=== PATIENT | female | born 1990 | race American Indian/Alaskan Native ===

== ENCOUNTER 2017-01-07 03:38 | Emergency (ER) | payer MEDICAID ==
[2017-01-07 03:49] VITALS: BP 114/72
--- NOTE | 2017-01-07 09:03 | Emergency Department Report ---
ED General Adult HPI - General Chief complaint: Rectal Pain Stated complaint: POST DELIVERY HEMORRHOID/PAIN Time Seen by Provider: 01/07/17 08:26 Source: patient Mode of arrival: Ambulatory Limitations: No Limitations - History of Present Illness Initial comments: This is a 26-year-old female nontoxic, well nourished in appearance, no acute signs of distress presents to the ED complaining of hemorrhoids. 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 Patient denies any rectal bleeding, fever, chills, constipation, diarrhea, abdominal pain, nausea, vomiting, chest pain shortness of breath. Patient denies any allergies. Past medical history includes asthma. MD Complaint: external hemorrhoids -: Gradual, days(s) (4) Radiation: non-radiation Severity scale (0 -10): 6 Quality: aching Consistency: constant Improves with: none Worsens with: none Associated Symptoms: denies other symptoms. denies: confusion, chest pain, cough, diaphoresis, fever/chills, headaches, loss of appetite, malaise, nausea/ vomiting, rash, seizure, shortness of breath, syncope, weakness Treatments Prior to Arrival: none - Related Data Previous Rx's Medication Instructions Recorded Last Taken Type ALBUTEROL Inhaler [ProAir HFA 2 puff IH QID PRN #1 inhalation 12/02/15 Unknown Rx Inhaler] predniSONE [Deltasone] 20 mg PO QDAY #5 tab 12/02/15 Unknown Rx HYDROcodone/APAP 5-325 [[place] 2 each PO Q6H PRN #30 tablet 01/22/16 Unknown Rx 5-325 mg TAB] Ibuprofen [Motrin 600 MG tab] 600 mg PO Q6H PRN #30 tablet 01/22/16 Unknown Rx Vit-Fe Fumar-FA [ 1 each PO QDAY #30 tablet 01/22/16 Unknown Rx Vitamin] Ferrous Sulfate [Feosol 325 MG tab] 325 mg PO BID #60 tablet 01/02/17 Unknown Rx Ibuprofen [Motrin 600 MG tab] 600 mg PO Q6HR PRN #30 tablet 01/02/17 Unknown Rx Dibucaine 1% [Nupercainal] 1 applicatio [place] TID #1 tube 01/07/17 Unknown Rx Hydrocortisone 1% [Hydrocortisone 1 applicatio [place] BID #1 tube 01/07/17 Unknown Rx 1% CREAM] Allergies Allergy/AdvReac Type Severity Reaction Status Date / Time No Known Allergies Allergy Unverified 04/16/15 20:40 ED Review of Systems ROS: Stated complaint: POST DELIVERY HEMORRHOID/PAIN Other details as noted in HPI Constitutional: denies: chills, fever Eyes: denies: eye pain, eye discharge, vision change ENT: denies: ear pain, throat pain Respiratory: denies: cough, shortness of breath, wheezing Cardiovascular: denies: chest pain, palpitations Endocrine: no symptoms reported Gastrointestinal: denies: abdominal pain, nausea, diarrhea Genitourinary: denies: urgency, dysuria, discharge Musculoskeletal: denies: back pain, joint swelling, arthralgia Skin: denies: rash, lesions Neurological: denies: headache, weakness, paresthesias Psychiatric: denies: anxiety, depression Hematological/Lymphatic: denies: easy bleeding, easy bruising ED Past Medical Hx - Past Medical History Previous Medical History?: Yes Hx Hypertension: No Hx Congestive Heart Failure: No Hx Diabetes: No Hx Deep Vein Thrombosis: No Hx Renal Disease: No Hx Sickle Cell Disease: No Hx Seizures: No Hx Asthma: Yes (mild, albuterol PRN) Hx COPD: No Hx HIV: No - Surgical History Past Surgical History?: No - Social History Smoking Status: Never Smoker Substance Use Type: None - Medications Home Medications: Home Medications Medication Instructions Recorded Confirmed Last Taken Type ALBUTEROL Inhaler [ProAir HFA 2 puff IH QID PRN #1 inhalation 12/02/15 01/01/17 Unknown Rx Inhaler] predniSONE [Deltasone] 20 mg PO QDAY #5 tab 12/02/15 01/01/17 Unknown Rx HYDROcodone/APAP 5-325 [[place] 2 each PO Q6H PRN #30 tablet 01/22/16 01/01/17 Unknown Rx 5-325 mg TAB] Ibuprofen [Motrin 600 MG tab] 600 mg PO Q6H PRN #30 tablet 01/22/16 01/01/17 Unknown Rx Vit-Fe Fumar-FA [ 1 each PO QDAY #30 tablet 01/22/16 01/01/17 Unknown Rx Vitamin] Ferrous Sulfate [Feosol 325 MG tab] 325 mg PO BID #60 tablet 01/02/17 Unknown Rx Ibuprofen [Motrin 600 MG tab] 600 mg PO Q6HR PRN #30 tablet 01/02/17 Unknown Rx Dibucaine 1% [Nupercainal] 1 applicatio [place] TID #1 tube 01/07/17 Unknown Rx Hydrocortisone 1% [Hydrocortisone 1 applicatio [place] BID #1 tube 01/07/17 Unknown Rx 1% CREAM] ED Physical Exam - General Limitations: No Limitations General appearance: alert, in no apparent distress - Head Head exam: Present: atraumatic, normocephalic, normal inspection - Eye Eye exam: Present: normal appearance, PERRL, EOMI. Absent: scleral icterus, conjunctival injection, nystagmus, periorbital swelling, periorbital tenderness Pupils: Present: normal accommodation - ENT ENT exam: Present: normal exam, normal orophraynx, mucous membranes moist, TM's normal bilaterally, normal external ear exam - Neck Neck exam: Present: normal inspection, full ROM. Absent: tenderness, meningismus, lymphadenopathy, thyromegaly - Respiratory Respiratory exam: Present: normal lung sounds bilaterally. Absent: respiratory distress, wheezes, rales, rhonchi, stridor, chest wall tenderness, accessory muscle use, decreased breath sounds, prolonged expiratory - Cardiovascular Cardiovascular Exam: Present: regular rate, normal rhythm. Absent: systolic murmur, diastolic murmur, rubs, gallop - GI/Abdominal GI/Abdominal exam: Present: soft, normal bowel sounds. Absent: distended, tenderness, guarding, rebound, rigid, diminished bowel sounds, organomegaly - Rectal Rectal exam: Present: normal inspection, normal rectal tone, hemorrhoids ( external and reducible. No signs of bleeding or thrombosed.), other (bobbin doffer Laura PRADO present during exam). Absent: decreased rectal tone, heme (-) stool , black stool, bloody stool, fecal impaction, mass, tenderness - Extremities Exam Extremities exam: Present: normal inspection, full ROM, normal capillary refill. Absent: tenderness, pedal edema, joint swelling, calf tenderness - Back Exam Back exam: Present: normal inspection, full ROM. Absent: tenderness, CVA tenderness (R), CVA tenderness (L), muscle spasm, paraspinal tenderness, vertebral tenderness, rash noted - Neurological Exam Neurological exam: Present: alert, oriented X3, CN II-XII intact, normal gait, reflexes normal - Psychiatric Psychiatric exam: Present: normal affect, normal mood - Skin Skin exam: Present: warm, dry, intact, normal color. Absent: rash ED Course Vital Signs 01/07/17 03:44 Temperature 97.5 F L Pulse Rate 64 Blood Pressure 114/72 O2 Sat by Pulse 99 Oximetry - Reevaluation(s) Reevaluation #1: 01/07/17 09:03 Patient is speaking full sentences with no signs of distress. Critical care attestation.: If time is entered above; I have spent that time in minutes in the direct care of this critically ill patient, excluding procedure time. ED Disposition Clinical Impression: External hemorrhoids Disposition: - TO HOME OR SELFCARE Is pt being admited?: No Does the pt Need Aspirin: No Condition: Stable Instructions: Sitz Bath (GEN), Hemorrhoids (ED), Hydrocortisone (Rectal), Dibucaine (On the skin) Additional Instructions: Follow-up with a primary care doctor/general surgery in 3-5 days or if symptoms worsen to continue return to emergency room as soon as possible. As instructed and directed use hydrocortisone rectal cream and Dibucaine as prescribed. Perform sitz bath as instructed. Prescriptions: Dibucaine 1% [Nupercainal] 1 applicatio [place] TID #1 tube Hydrocortisone 1% [Hydrocortisone 1% CREAM] 1 applicatio [place] BID #1 tube Referrals: PRIMARY CARE, [Primary Care Provider] - 3-5 Days MARGOTH MCGOWAN MD [Staff Physician] - 3-5 Days CHELO TORRES MD [Staff Physician] - 3-5 Days [facility] [Outside] - 3-5 Days [facility] [Outside] - 3-5 Days Forms: Work/School Release Form(ED)
== END 2017-01-07 09:20 | disposition home or self-care (01) ==
LOC: ED 03:38
DX: K64.4 Residual hemorrhoidal skin tags (principal); J45.909 Unspecified asthma, uncomplicated
CPT/HCPCS: 99282

== ENCOUNTER 2020-07-30 17:13 | Emergency (ER) | payer SELFPAY ==
[2020-07-30 17:29] VITALS: BP 135/83
--- NOTE | 2020-07-30 17:43 | Emergency Department Report ---
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 Was seen at [facility] 1 week ago was discharged home with medications of unknown variation which she took and states that her pain has continued to aggravate her off and on reports no numbness, no tingling, no loss of bowel or bladder, no saddle paresthesia, no fever, chills, sweats, dysuria, hematuria MD Complaint: back pain Place: work Radiation: none Severity: mild, moderate Worsens With: movement (And certain positions) Context: while lifting Associated Symptoms: denies: difficulty urinating, incontinence, fever/chills, constipation, abdominal pain, nausea/vomiting, seizure, shortness of breath - Related Data Previous Rx's Medication Instructions Recorded Last Taken Type Albuterol Mdi (or & Nicu Only) 2 puff IH QID PRN #1 inhalation 12/02/15 Unknown Rx [ProAir HFA Inhaler] predniSONE [Deltasone] 20 mg PO QDAY #5 tab 12/02/15 Unknown Rx HYDROcodone/APAP 5-325 [[place] 2 each PO Q6H PRN #30 tablet 01/22/16 Unknown Rx 5-325 mg TAB] Ibuprofen [Motrin 600 MG tab] 600 mg PO Q6H PRN #30 tablet 01/22/16 Unknown Rx Vit-Fe Fumar-FA [ 1 each PO QDAY #30 tablet 01/22/16 Unknown Rx Vitamin] Ferrous Sulfate [Feosol 325 MG tab] 325 mg PO BID #60 tablet 01/02/17 Unknown Rx Ibuprofen [Motrin 600 MG tab] 600 mg PO Q6HR PRN #30 tablet 01/02/17 Unknown Rx Dibucaine 1% [Nupercainal] 1 applicatio [place] TID #1 tube 01/07/17 Unknown Rx Hydrocortisone 1% [Hydrocortisone 1 applicatio [place] BID #1 tube 01/07/17 Unknown Rx 1% CREAM] Ketorolac [Toradol] 10 mg PO Q8HR PRN #14 tablet 07/30/20 Unknown Rx Allergies Allergy/AdvReac Type Severity Reaction Status Date / Time No Known Allergies Allergy Unverified 04/16/15 20:40 ED Review of Systems ROS: Stated complaint: BACK PAIN Other details as noted in HPI Comment: All other systems reviewed and negative ED Past Medical Hx - Past Medical History Previous Medical History?: Yes Hx Hypertension: No Hx Congestive Heart Failure: No Hx Diabetes: No Hx Deep Vein Thrombosis: No Hx Renal Disease: No Hx Sickle Cell Disease: No Hx Seizures: No Hx Asthma: Yes (mild, albuterol PRN) Hx COPD: No Hx HIV: No Additional medical history: Back pain - Surgical History Past Surgical History?: No - Social History Smoking Status: Never Smoker Substance Use Type: None - Medications Home Medications: Home Medications Medication Instructions Recorded Confirmed Last Taken Type Albuterol Mdi (or & Nicu Only) 2 puff IH QID PRN #1 inhalation 12/02/15 01/01/17 Unknown Rx [ProAir HFA Inhaler] predniSONE [Deltasone] 20 mg PO QDAY #5 tab 12/02/15 01/01/17 Unknown Rx HYDROcodone/APAP 5-325 [[place] 2 each PO Q6H PRN #30 tablet 01/22/16 01/01/17 Unknown Rx 5-325 mg TAB] Ibuprofen [Motrin 600 MG tab] 600 mg PO Q6H PRN #30 tablet 01/22/16 01/01/17 Unknown Rx Vit-Fe Fumar-FA [ 1 each PO QDAY #30 tablet 01/22/16 01/01/17 Unknown Rx Vitamin] Ferrous Sulfate [Feosol 325 MG tab] 325 mg PO BID #60 tablet 01/02/17 Unknown Rx Ibuprofen [Motrin 600 MG tab] 600 mg PO Q6HR PRN #30 tablet 01/02/17 Unknown Rx Dibucaine 1% [Nupercainal] 1 applicatio [place] TID #1 tube 01/07/17 Unknown Rx Hydrocortisone 1% [Hydrocortisone 1 applicatio [place] BID #1 tube 01/07/17 Unknown Rx 1% CREAM] Ketorolac [Toradol] 10 mg PO Q8HR PRN #14 tablet 07/30/20 Unknown Rx ED Physical Exam - General Limitations: No Limitations General appearance: alert, in no apparent distress - Head Head exam: Present: atraumatic, normocephalic - Eye Eye exam: Present: normal appearance - ENT ENT exam: Present: mucous membranes moist - Neck Neck exam: Present: normal inspection - Respiratory Respiratory exam: Present: normal lung sounds bilaterally. Absent: respiratory distress - Cardiovascular Cardiovascular Exam: Present: regular rate, normal rhythm. Absent: systolic murmur, diastolic murmur, rubs, gallop - GI/Abdominal GI/Abdominal exam: Present: soft, normal bowel sounds - Extremities Exam Extremities exam: Present: normal inspection - Back Exam Back exam: Present: normal inspection, tenderness, paraspinal tenderness, vertebral tenderness. Absent: CVA tenderness (R), CVA tenderness (L), muscle spasm - Neurological Exam Neurological exam: Present: alert, oriented X3, CN II-XII intact, normal gait - Expanded Neurological Exam Expanded Sensory exam: Lower Extremity Light Touch: Normal Motor strength exam: RLE: 5, LLE: 5 Best Eye Response ([place]): (4) open spontaneously Best Motor Response ([place]): (6) obeys commands Best Verbal Response ([place]): (5) oriented [place] Total: 15 - Psychiatric Psychiatric exam: Present: normal affect, normal mood - Skin Skin exam: Present: warm, dry, intact, normal color. Absent: rash ED Course Vital Signs 07/30/20 17:27 Temperature 98.2 F Pulse Rate 88 Respiratory 16 Rate Blood Pressure 135/83 O2 Sat by Pulse 100 Oximetry ED Medical Decision Making - Medical Decision Making Pt presents the emergency department complaining of back pain most consistent with lumbago back Pain Most Consistent with Strain/Contusion. Differential Diagnosis Includes Lumbar Go Versus Musculoskeletal Spasm, Strain Versus Sciatica. No Back Pain Red Flags on History or Physical. Presentation Not Consistent with Malignancy, Fracture, Cauda Equina, Abdominal Aortic Aneurysm, Viscus Perforation, Pulmonary Embolism, Renal Colic, Pyelonephritis. Patient reports no B symptoms, trauma trauma, incontinence, saddle anesthesia, distal weakness, urinary symptoms and is a febrile. Critical care attestation.: If time is entered above; I have spent that time in minutes in the direct care of this critically ill patient, excluding procedure time. ED Disposition Clinical Impression: Lumbago Disposition: DC- TO HOME OR SELFCARE Is pt being admited?: No Does the pt Need Aspirin: No Condition: Stable Instructions: Acute Back Pain, Adult, Back Injury Prevention, [id number], Back Injury Prevention Additional Instructions: Please be sure to follow-up with orthopedic for definitive treatment of your continued back pain. At this present time we found no urgent or emergent medical condition to give reasoning for this pain. Prescriptions: Ketorolac [Toradol] 10 mg PO Q8HR PRN #14 tablet PRN Reason: Pain Referrals: GISSEL VARGAS MD [Staff Physician] - 3-5 Days Forms: Work/School Release Form(ED)
--- NOTE | 2020-07-30 18:09 | XRay Report ---
LUMBAR SPINE 3 VIEWS INDICATION / CLINICAL INFORMATION: Lumbar pain. COMPARISON: None available. FINDINGS: VERTEBRAE: No acute fracture. No significant malalignment. DISC SPACES / FACET JOINTS:No significant abnormality. PARASPINAL SOFT TISSUES:No significant abnormality. ADDITIONAL FINDINGS: None. Signer Name: Juani Philippe MD Signed: 07/30/2020 6:04 PM Workstation Name: [id number]
== END 2020-07-30 18:23 | disposition home or self-care (01) ==
LOC: ED 17:13
DX: M54.5 Low back pain (principal); J45.909 Unspecified asthma, uncomplicated; Z79.899 Other long term (current) drug therapy
CPT/HCPCS: 72100